=== PATIENT | female | born 1985 | race Caucasian/White ===

== ENCOUNTER 2020-02-22 14:35 | Emergency (ER) | payer OTHER ==
[~2020-02-22] VITALS: Ht 167.6 cm; Wt 73.9 kg
[2020-02-22] MEDS ORDERED: ZANAFLEX4 MG PO (17:10)
[2020-02-22] MEDS ORDERED: IBUPROFEN 800800 M1 PO (17:10)
[2020-02-22 17:19] VITALS: BP 143/85
--- NOTE | 2020-02-23 16:36 | EKG ---
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
== END 2020-02-22 17:19 | disposition home or self-care (01) ==
LOC: M.ERS 14:35
DX: M79.662 Pain in left lower leg (principal); R07.89 Other chest pain; Z88.1 Allergy status to other antibiotic agents